=== PATIENT | male | born 1975 | race African-American/Black ===

== ENCOUNTER 2016-09-12 13:26 | Emergency (ER) | payer SELFPAY ==
[2016-09-12 13:30] VITALS: BP 148/62; BMI 22.4
--- NOTE | 2016-09-12 14:10 | DR.GENAD ---
HPI - PCP Primary Care Physician: NONE - Complaint/Symptoms Chief Complaint:: PT RIGHT RIBS HURT WHEN HE BREATHS - Nurses notes reviewed Nurses Notes Review: Yes - Source History Provided: Patient - Mode of Arrival Mode of Arrival: Ambulatory - Timing Onset of Chief Complaint: 09/12/16 Came on: Suddenly - Duration Duration: Constant How lon Duration: Hours - Severity Severity: Moderate - Modifying Factors Worsens:: movement - Associated Signs and Symptoms Associated Signs and Symptoms: pain PMH - PMH Past Medical History: No Past Surgical History: Yes Past Surgical History Comment: BLADDER SURGERY AND RODE IN RIGHT HAND - Family History History of Family Medical Conditions: No - Social History Does patient currently use any type of tobacco product: Yes Have you used tobacco products in the last 12 months: Yes Type of Tobacco Use: Cigarettes How many years tobacco product used: 20 Does any household member use tobacco: No Alcohol Use: None Do you use any recreational Drugs:: No Lives With: Family Lives Where: Home - infectious screening In the last 2 months have you had wt loss of >10#?: NO Have you had fever, night sweats or hemotysis?: No Have you traveled outside the country in the last 6 months?: No Isolation: Standard ROS - Review of Systems Constitutional: No Symptoms Reported Eyes: No Symptoms Reported ENTM: No Symptoms Reported Respiratoy: No Symptoms Reported Cardiovascular: Chest Pain (right rib) Gastrointestinal/Abdominal: No Symptoms Reported Genitourinary: No Symptoms Reported Neurological: No Symptoms Reported Musculoskeletal: No Symptoms Reported Integumentary: No Symptoms Reported Hematologic/Lymphatic: No Symptoms Reported Endocrine: No Symptoms Reported Psychiatric: No Symptoms Reported All Other Systems: Reviewed and Negative PE - Vital Signs Vitals: Temperature 98 F Pulse Rate 96 Respiratory Rate 18 Blood Pressure 148/62 O2 Sat by Pulse Oximetry 100 - General Limitations: No Limitations General Appearance: Alert, In No Apparent Distress - Head Head Exam: Normal Inspection - Eyes Eye exam: Normal Appearance, EOMI. negative: Scleral Icterus, Conjunctival Injection - ENT ENT Exam: Normal Exam Throat Exam: Normal Inspection - Neck Neck Exam: Normal Inspection, Full ROM, Trachea Midline - Chest Chest Inspection: Normal Inspection - Respiratory Respiratory Exam: Normal Lung Sounds Bilat. negative: Accessory Muscle Use, Respiratory Distress Respiratory Exam: Bilateral Clear to Auscultation - Cardiovascular Cardiovascular Exam: Regular Rate - Abdominal Exam Abdominal Exam: Normal Inspection, Normal Bowel Sounds, Soft. negative: Distention, Tenderness, Guarding - Extremities Extremities Exam: Normal Inspection, Full ROM, Tenderness - Back Back Exam: Normal Inspection - Neurologic Neurological Exam: Alert, Oriented X3, CN II-XII Intact - Psychiatric Psychiatric Exam: Normal Affect - Skin Skin Exam: Intact, Normal Color ROR - XRAY XRAY Interpreted by: Radiologist XRAY Findings: chest: RML infiltrate - Diagnosis Discharge Problem: Pneumonia Qualifiers: Pneumonia type: due to unspecified organism Laterality: right Lung location: middle lobe of lung Qualified Code(s): J18.1 - Lobar pneumonia, unspecified organism - Discharge Plan Condition: Stable - Follow ups/Referrals Follow ups/Referrals: [facility],None [Primary Care Provider] - 3 days - Instructions
--- NOTE | 2016-09-12 14:28 | RAD ---
Examination: Chest x-ray. Clinical History: Right rib pain, chest pain on breathing. Technique: PA and lateral views of the chest were obtained. Comparison: None available. Findings: The cardiac and mediastinal contours are within normal limits. No pneumothorax or pleural effusion is noted. There is a confluent opacity present in the right middle lobe, likely due to pneumonia. Clinical cor relation with continued followup until resolution is recommended. If the patient does not have sympt oms of pneumonia, a CT of the chest, with intravenous contrast, is recommended for further evaluatio n. No acute osseous abnormality is noted. Impression: 1. There is a confluent opacity present in the right middle lobe, likely due to pneumonia. Clinical correlation with continued followup until resolution is recommended. If the patient does not have sy mptoms of pneumonia, a CT of the chest, with intravenous contrast, is recommended for further evalua tion. Reported By:
[2016-09-12] MEDS ORDERED: ROCEPHIN VIAL 1 GM IM ONE (14:38)
[2016-09-12] MEDS ORDERED: XYLOCAINE 1 % (PLAIN) ONE (14:45)
[2016-09-12] MEDS ORDERED: ROCEPHIN VIAL 1 GM ONE (14:45)
== END 2016-09-12 14:50 | disposition home or self-care (01) ==
LOC: ER 13:36
DX: J18.1 Lobar pneumonia, unspecified organism (principal)
CPT/HCPCS: 71020; 96372; 99283; J0696; J2001